=== PATIENT | female | born 1965 | race Caucasian/White ===

== ENCOUNTER 2017-12-26 07:28 | Observation (INO) ==
[2017-12-26] MEDS ORDERED: Nitroglycerin 0.4 MG TAB.SUBL SL ONE (07:45)
--- NOTE | 2017-12-26 07:49 | Emergency Department Note ---
Disposition Clinical Impression: Chest pain Qualifiers: Chest pain type: unspecified Qualified Code(s): R07.9 - Chest pain, unspecified Disposition: Admitted As Inpatient Condition: Fair Forms: ED Satisfaction Letter Time of Disposition: 08:33 Chest Pain HPI - General Chief Complaint: ED Chest Pain Stated Complaint: CHEST PAIN Time Seen by Provider: 12/26/17 07:31 Source: patient, family Mode of arrival: ambulatory Limitations: no limitations Vital Signs Reviewed: Yes Nursing Notes Reviewed: Yes - History of Present Illness HPI Narrative: Awoke 4 hours ago with left-sided chest pain radiating to her left neck and shoulder. Associated dizziness. States she had similar symptoms previously thought secondary to her gallbladder but she is status post cholecystectomy. She has a positive family history of coronary artery disease. Had a stress test 2 years ago. no cardiac catheterization since she was a child to evaluate for a septal defect Pt complaint: chest pain Onset (ago): hour(s) Duration: constant Onset: awoke with symptoms Pain Location: left chest Severity: moderate Severity scale (1-10): 5 Pain Radiation: LUE Improves with: nothing Worsens with: nothing Associated symptoms: Reports: other (dizziness) Treatments prior to arrival chest pain: aspirin - Related Data On Oral Contraceptives: No Home Medications Medication Instructions Recorded Confirmed Levothyroxine [Synthroid] 100 mcg PO SUMOTUTHFR 11/27/15 10/22/16 Lisinopril-HCTZ 10-12.5 [Prinzide 1 tab PO QAM 11/27/15 10/22/16 10-12.5] [place]-3 Fatty Acids [Maxepa] 1,000 mg PO QPM 11/27/15 10/22/16 Rosuvastatin [Crestor] 40 mg PO QPM 11/27/15 10/22/16 Levothyroxine [Synthroid] 112 mcg PO WESA 06/10/16 10/22/16 Previous Rx's Medication Instructions Recorded OxyCODONE/APAP 10/325 [Percocet 1 each PO Q6HR PRN #39 tablet 08/02/16 10/325 MG] Amoxicillin 875 mg PO BID #20 tablet 10/22/16 Allergies Allergy/AdvReac Type Severity Reaction Status Date / Time latex Allergy Rash Verified 10/22/16 06:03 morphine AdvReac Nausea Verified 10/22/16 06:03 All systems ED: reviewed and negative except as stated. Constitutional: Reports: as per HPI Eyes: Reports: as per HPI ENT ED: Reports: epistaxis Cardiovascular: Reports: chest pain Respiratory: Reports: as per HPI Gastrointestinal: Reports: as per HPI Genitourinary: Reports: as per HPI Musculoskeletal: Reports: neck pain, other (Left shoulder pain) Integumentary: Reports: as per HPI Neurological: Reports: other (Dizziness) Psychiatric: Reports: as per HPI Endocrine: Reports: as per HPI Hematological/Lymphatic: Reports: as per HPI Allergic/Immunologic: Reports: as per HPI Chest Pain PMH - Past Medical History Medical history: Reports: hyperlipidemia, hypertension, kidney stones, migraine , thyroid disease, other Surgical history: Reports: appendectomy, cholecystectomy, hysterectomy, other Psychiatric history: Reports: anxiety - Social History Smoking Status: Never smoker Alcohol use: Reports: occasionally Drug use: Reports: none Physical Exam - General Limitations: no limitations General appearance: alert - Head Head exam: atraumatic - Eye Eye exam: Present: normal appearance - ENT ENT exam: normal exam - Neck Neck exam: Present: normal inspection, full ROM - Chest Chest inspection: Present: normal inspection, symmetric chest wall rise. Absent : tenderness - Respiratory Respiratory exam: Present: normal lung sounds bilaterally - Cardiovascular Cardiovascular exam: Present: regular rate, normal rhythm, normal heart sounds - Rectal Exam Rectal exam: Present: deferred - Extremities Exam Extremities exam: Present: normal inspection - Neurological Exam Neurological exam: Present: alert, oriented X3, CN II-XII intact - Psychiatric Psychiatric exam: Present: normal affect, normal mood - Skin Skin exam: Present: warm, dry, intact Course Course Narrative: Patient presents with chest discomfort associated with left shoulder and neck pain. She has a history of hypertension and high cholesterol as well as a positive family history of coronary artery disease. ECG does not show any dynamic changes. Workup initiated - Reevaluation(s) Reevaluation #1: Test results discussed with patient. I will request admission to the medicine service Vital Signs Temperature 97.8 F 12/26/17 07:32 Pulse Rate 77 12/26/17 07:32 Respiratory Rate 16 12/26/17 07:32 Blood Pressure 133/85 12/26/17 07:32 O2 Sat by Pulse Oximetry 100 12/26/17 07:32 Temperature 97.8 F 12/26/17 07:32 Pulse Rate 77 12/26/17 07:32 Respiratory Rate 16 12/26/17 07:32 Blood Pressure 133/85 12/26/17 07:32 O2 Sat by Pulse Oximetry 100 12/26/17 07:32 Oxygen Delivery Oxygen Delivery Room Air Chest Pain - Lab Data Lab results reviewed: Yes I reviewed the patient's lab results. Result diagrams: 12/26/17 07:55 12/26/17 07:55 Lab Results 12/26/17 12/26/17 12/26/17 Range/Units 07:55 07:55 07:55 WBC 5.4 (4.3-11.1) K/mcL RBC 5.11 H (3.82-4.97) M/mcL Hgb 14.7 (11.5-15.4) g/dL Hct 44.5 (35.3-44.9) % MCV 87.1 (83.0-100.0) fL MCH 28.8 (28.0-33.3) pg MCHC 33.0 (31.6-35.5) g/dL RDW 12.6 (11.5-14.5) % Plt Count 225 (140-400) K/mcL MPV 9.8 (9.4-12.4) fL Immature Gran % 0.2 (0-4) % Seg Neutrophils % 45.6 % Lymphocytes % 42.2 % Monocytes % 8.0 % Eosinophils % 3.4 % Basophils % 0.6 % Neutrophils # 2.5 (1.6-8.9) K/mcL Lymphocytes # 2.3 (0.6-4.6) K/mcL Monocytes # 0.4 (0.0-1.3) K/mcL Eosinophils # 0.2 (0.0-0.6) K/mcL Basophils # 0.0 (0.0-0.2) K/mcL PT 11.7 (9.4-12.1) Seconds INR 1.1 APTT 31.8 (26.0-36.0) Seconds Sodium 139 (136-145) mEq/L Potassium 3.5 (3.5-5.1) mEq/L Chloride 104 (98-107) mEq/L Carbon Dioxide 28 (23-29) mEq/L BUN 11 (6-20) mg/dL Creatinine 0.92 (0.60-1.20) mg/dL Est GFR ( Amer) > 60 (> 60) Est GFR (Non-Af Amer) > 60 (> 60) BUN/Creatinine Ratio 12 (6-26) Glucose 106 H (70-105) mg/dL Calculated Osmolality 288 (280-300) Calcium 9.8 (8.6-10.3) mg/dL Troponin I (< 0.04) ng/mL 12/26/17 Range/Units 07:55 WBC (4.3-11.1) K/mcL RBC (3.82-4.97) M/mcL Hgb (11.5-15.4) g/dL Hct (35.3-44.9) % MCV (83.0-100.0) fL MCH (28.0-33.3) pg MCHC (31.6-35.5) g/dL RDW (11.5-14.5) % Plt Count (140-400) K/mcL MPV (9.4-12.4) fL Immature Gran % (0-4) % Seg Neutrophils % % Lymphocytes % % Monocytes % % Eosinophils % % Basophils % % Neutrophils # (1.6-8.9) K/mcL Lymphocytes # (0.6-4.6) K/mcL Monocytes # (0.0-1.3) K/mcL Eosinophils # (0.0-0.6) K/mcL Basophils # (0.0-0.2) K/mcL PT (9.4-12.1) Seconds INR APTT (26.0-36.0) Seconds Sodium (136-145) mEq/L Potassium (3.5-5.1) mEq/L Chloride (98-107) mEq/L Carbon Dioxide (23-29) mEq/L BUN (6-20) mg/dL Creatinine (0.60-1.20) mg/dL Est GFR ( Amer) (> 60) Est GFR (Non-Af Amer) (> 60) BUN/Creatinine Ratio (6-26) Glucose (70-105) mg/dL Calculated Osmolality (280-300) Calcium (8.6-10.3) mg/dL Troponin I < 0.03 (< 0.04) ng/mL - Radiology Data Radiology results reviewed: Yes I reviewed the patient's radiology results. - EKG Data EKG attestation: Yes I reviewed and interpreted this EKG. EKG results narrative: Normal sinus rhythm rate 75 P-R 166 QRS 85 QT/QTC 382/411 study compared to previous dated 11/27/15 Heart Score - Score History: Moderately Suspicious EKG: Normal Age: 45-65 Risk Factors: 1-2 risk factors Troponin: Less than normal limit HEART Score Total: 3
[2017-12-26] MEDS ORDERED: Ondansetron 4 MG/2 ML VIAL IVP ONE (07:56)
[2017-12-26 08:08] LABS: Basophils % 0.6 %; Eosinophils # 0.2 K/mcL (0.0-0.6); Eosinophils % 3.4 %; Hematocrit 44.5 % (35.3-44.9); Hemoglobin 14.7 g/dL (11.5-15.4); Immature Granulocytes % 0.2 % (0-4); Lymphocytes # 2.3 K/mcL (0.6-4.6); Lymphocytes % 42.2 %; Mean Corpuscular Hemoglobin 28.8 pg (28.0-33.3); Mean Corpuscular Volume 87.1 fL (83.0-100.0); Mean Platelet Volume 9.8 fL (9.4-12.4); Monocytes # 0.4 K/mcL (0.0-1.3); Neutrophils # 2.5 K/mcL (1.6-8.9); Platelet Count 225 K/mcL (140-400); Red Blood Count 5.11 M/mcL (3.82-4.97); Red Cell Distribution Width 12.6 % (11.5-14.5); Segmented Neutrophils % 45.6 %
[2017-12-26 08:23] LABS: INR 1.1; Prothrombin Time 11.7 Seconds (9.4-12.1)
[2017-12-26 08:24] LABS: BUN/Creatinine Ratio 12 (6-26); Blood Urea Nitrogen 11 mg/dL (6-20); Calcium 9.8 mg/dL (8.6-10.3); Carbon Dioxide 28 mEq/L (23-29); Chloride 104 mEq/L (98-107); Glucose 106 mg/dL (70-105); Osmolality,Calculated 288 (280-300); Potassium 3.5 mEq/L (3.5-5.1); Sodium 139 mEq/L (136-145); eGFR For Non-African Americans > 60 (> 60)
[2017-12-26 08:26] LABS: Activated Partial Thrombo Time 31.8 Seconds (26.0-36.0)
[2017-12-26] MEDS ORDERED: Naloxone 0.4 MG/ML INJ IVP PRN (12:48)
[2017-12-26] MEDS ORDERED: Acetaminophen 325 MG TABLET PO PRN (12:48)
[2017-12-26] MEDS ORDERED: Nitroglycerin 0.4 MG TAB.SUBL SL PRN (12:52)
--- NOTE | 2017-12-26 15:12 | Internal Med History&Physical ---
<Khurram Felix - Last Filed: 12/26/17 15:25> Date of Encounter: 12/26/17 Time of Encounter: 12:30 Assessment and Plan (1) Chest pain Current visit: Yes Status: Acute Acute chest pain that began this morning at 0400 as left-sided chest pain with radiation to left arm and left neck. Patient describes pain as sharp and stabbing followed by a pressure/aching. Similar symptoms 2 years ago with gallbladder attack. Denies personal history of catheterization/stent placement. Reports lengthy familial history of cardiac disease including 7 way bypass in father, CVAs, MIs, HTN, HLD, and IHSS. Initial troponin less than 0.03. Trend 2. Echocardiogram ordered. Nothing by mouth at midnight for a.m. nuclear stress test. Aspirin. Nitroglycerin when necessary. Continue patient's statin. Cardiology consult ordered and discussed with Dr. Wells due to lengthy familial cardiac history and current chest pain and I appreciate the consult. Patient discussed w/Dr. Javier agrees with plan of care. Patient is high risk for cardiac event/further morbidity due to current symptoms, lengthy familial cardiac disease history, and factors. Observation. Qualifiers: Chest pain type: other chest pain Qualified Code(s): R07.89 - Other chest pain; R07.8 - Other chest pain (2) HLD (hyperlipidemia) Current visit: Yes Status: Chronic Hx of chronic HLD. Lipid panel in a.m. labs. Continue pts. Crestor. Qualifiers: Hyperlipidemia type: pure hypercholesterolemia Qualified Code(s): E78.00 - Pure hypercholesterolemia, unspecified; E78.0 - Pure hypercholesterolemia (3) HTN (hypertension) Current visit: Yes Status: Chronic Hx of chronic HTN. Monitor pt. and VS. Continue pts. Lisinopril-HCTZ. Qualifiers: Hypertension type: essential hypertension Qualified Code(s): I10 - Essential (primary) hypertension (4) Thyroid disease Current visit: Yes Status: Chronic Hx of chronic thyroid disease. Patient states her thyroid disease is not well- managed currently. TSH, free T3, and free T4 ordered a.m. labs. Continue patient's Synthroid. (5) DVT prophylaxis Current visit: Yes Status: Acute Heparin 5,000 units SQ Q8 for DVT prophylaxis. Monitor patient for signs of bleeding. Internal Medicine - H&P: HPI Chief complaint: Chest pain Admitted From: Emergency Dept Plans for Post Hospital Care: Home History of present illness: Ms. Morris is a 52 year old female with PMH of HLD, HTN, kidney stones, migraine, thyroid disease presents from the ED with chief complaint chest pain that began at 0400 this morning and she describes as left-sided chest pain with radiation to her left neck and left arm. She describes pain as sharp and stabbing followed by pressure/ache. Reports similar symptoms 2 years ago this issue with the gallbladder. No alleviating or aggravating factors. Reports likely a familial history of cardiac disease with bypass surgeries, strokes, MIs, HTN, HLD, DM, and IHSS. Denies personal hx of cardiac catheterizations/stents. Reports some SOB w/sx but denies recent illness, fever, chills, nausea, vomiting , changes in vision, headache, palpitations, numbness, tingling, abdominal pain , constipation, diarrhea, dizziness, lightheadedness, pre-syncope, or syncope. Past Med Surg Social Fam HX - Past Medical History Source: patient, old records reviewed, obtained from family Medical history: hyperlipidemia, hypertension, kidney stones, migraine, thyroid disease, other Psychiatric history: anxiety - Past Surgical History Surgical History: appendectomy, , cholecystectomy, hysterectomy, other - Social History Smoking Status: Never smoker Smokeless Tobacco Status: No Alcohol use: occasionally Drug use: none Current living situation: Home, With Family Activity Level: Independent ambulation Recent Out of Country Travel Within the Last 8 Weeks: No Exposure or Possible Exposure to Illness During Travel: No - Family History Mother Race: Family Member Ethnicity: Non- Living Status: Age at : 82 Cause of : Old age Hx Family Cardiac Disorders: Yes (HTN, HLD, Double bypass) Father Race: Family Member Ethnicity: Non- Living Status: Age at : 83 Cause of : Stroke Hx Family Cardiac Disorders: Yes (7-way bypass, CVA, HTN, HLD) Brother Race: Family Member Ethnicity: Non- Living Status: Age at : 69 Cause of : IHSS Hx Family Cardiac Disorders: Yes (Bypass surgery) Hx Family Endocrine Disorder: Yes (DM) Sister Race: Family Member Ethnicity: Non- Living Status: Age at : 60 Cause of : [place] Hx Family Cardiac Disorders: Yes ([place], Triple bypass) Hx Family Endocrine Disorder: Yes (DM) Grandfather Race: Family Member Ethnicity: Non- Living Status: Age at : 52 Cause of : IHSS Hx Family Cardiac Disorders: Yes (IHSS) Internal Medicine - H&P: Meds Levothyroxine [Synthroid] 100 mcg PO [id number] 11/27/15 [History] Lisinopril-HCTZ 10-12.5 [Prinzide 10-12.5] 1 tab PO QAM 11/27/15 [History] [place]-3 Fatty Acids [Maxepa] 1,000 mg PO QPM 11/27/15 [History] Rosuvastatin [Crestor] 40 mg PO QPM 11/27/15 [History] Levothyroxine Sodium [Levoxyl] 50 mcg PO MOON 12/26/17 [History] 3 Allergy/AdvReac Type Severity Reaction Status Date / Time latex Allergy Rash Verified 10/22/16 06:03 morphine AdvReac Nausea Verified 10/22/16 06:03 All Systems PM: A 10-system review of systems was performed and is negative for pertinent findings except as documented above in the HPI. - Constitutional Constitutional: no chills, no fever(s), no night sweats - EENT Eyes: no change in vision, no discharge, no pain, no photophobia Ears: no ear discharge, no ear pain, no tinnitus Nose, mouth and throat: no dysphagia, no nasal discharge, no neck pain, no sore throat - Breasts Breasts: as per HPI - Cardiovascular Cardiovascular ROS IM: as per HPI, chest pain, dyspnea, no diaphoresis, no lightheadedness, no palpitations, no syncope - Respiratory Respiratory: as per HPI, dyspnea, no cough, no wheezing, no excessive phlegm production - Gastrointestinal Gastrointestinal: no abdominal pain, no diarrhea, no hematemesis, no hematochezia, no melena, no nausea, no vomiting - Genitourinary Genitourinary: no change in urinary stream, no dysuria, no flank pain, no hematuria Menstruation: as per HPI, post hysterectomy - Musculoskeletal Musculoskeletal ROS IM: no numbness, no tingling - Integumentary Integumentary IM: no rash, no unusual bruising - Neurological Neurological ROS: no confusion, no convulsions, no focal weakness, no numbness, no tingling, no tremor(s) - Psychiatric Psychiatric: as per HPI, anxiety - Endocrine Endocrine IM: as per HPI - Hematologic/Lymphatic Hematologic/Lymphatic: no easy bruising - Allergic/Immunologic Allergic/Immunologic: as per HPI - Constitutional Vitals: Temp Pulse Resp BP Pulse Ox 98.1 F 76 17 101/68 94 12/26/17 10:45 12/26/17 10:45 12/26/17 10:45 12/26/17 10:45 12/26/17 10:54 General appearance: Present: cooperative, A&O X 3, pleasant, no acute distress, answers questions appropriately - Head Head exam: Present: atraumatic, normocephalic - Eye Eye exam: Present: PERRL, conjuntiva pink, sclera anicteric Pupils: Present: PERRL - ENT ENT exam: Present: normal exam - Neck Neck exam general surgery: Present: normal inspection, supple, trachea midline. Absent: lymphadenopathy - Respiratory Respiratory exam: Present: CTAB. Absent: accessory muscle use, rales, rhonchi, wheezes - Cardiovascular Cardiovascular exam: Present: RRR, +S1, +S2. Absent: diastolic murmur, gallop, rubs, systolic murmur - GI/Abdominal GI/Abdominal exam: Present: normal bowel sounds, soft, no peritoneal signs. Absent: distended, tenderness - Rectal Rectal exam: Present: deferred - Additional comments: exam deferred. - Extremities Exam Extremities exam: Present: warm, radial pulses palpable and symmetrical. Absent : calf tenderness, cyanotic, pedal edema - Back Exam Back exam: Present: normal inspection - Neurological Exam Neurological exam: Present: CN II-XII intact, oriented X3, no focal deficits. Absent: pronater drift, facial droop, speech deficit - Psychiatric Psychiatric exam: Present: normal affect, normal mood - Skin Skin exam: Present: dry, intact Internal Med - H&P Results - Labs CBC & Chem 7: 12/26/17 07:55 12/26/17 07:55 Labs: Cardiac Enzymes 12/26/17 Range/Units 13:47 Troponin I < 0.03 (< 0.04) ng/mL - EKG Data EKG shows normal: sinus rhythm - EKG Data Prior EKG available for review: yes EKG comments: 12/26/17 15:17 EKG dated 11/27/15 shows sinus rhythm. EKG dated 12/26/17 shows sinus rhythm with possible right ventricular conduction delay - Diagnostic Studies Chest x-ray Additional comments: Impressions Chest X-Ray 12/26/17 07:45 IMPRESSION: No acute process. D/ / Shimon Mo MD / Shimon Mo MD Interpreting Provider: Shimon Mo MD <YayaIan T - Last Filed: 12/27/17 07:31> Date of Encounter: 12/27/17 Internal Medicine - H&P: HPI History of present illness: Ms. Morris is a 52 year old female All Systems PM: A 10-system review of systems was performed and is negative for pertinent findings except as documented above in the HPI. - Constitutional Vitals: Temp Pulse Resp BP Pulse Ox 97.8 F 84 16 104/68 98 12/27/17 06:29 12/27/17 06:29 12/27/17 06:29 12/27/17 06:29 12/27/17 06:29 Internal Med - H&P Results - Labs CBC & Chem 7: 12/27/17 01:20 12/27/17 01:20 Labs: Short CBC 12/27/17 Range/Units 01:20 WBC 4.5 (4.3-11.1) K/mcL Hgb 13.2 D (11.5-15.4) g/dL Hct 39.3 (35.3-44.9) % Plt Count 196 (140-400) K/mcL Neutrophils # 1.9 (1.6-8.9) K/mcL BMP 12/27/17 01:20 Sodium 141 Potassium 3.5 Chloride 108 H Carbon Dioxide 28 BUN 11 Creatinine 0.85 Glucose 126 H Calcium 9.5 Cardiac Enzymes 12/26/17 12/26/17 Range/Units 13:47 19:48 Troponin I < 0.03 < 0.03 (< 0.04) ng/mL Liver Function 12/27/17 Range/Units 01:20 Total Bilirubin 0.4 (0.3-1.0) mg/dL AST 21 (13-39) Units/L ALT 28 (7-52) Units/L Alkaline Phosphatase 43 (34-104) Units/L Albumin 3.9 (3.5-5.7) g/dL - Impressions ITS Impressions Echocardiogram 12/26/17 12:54 Impressions: LVEF 70%. Normal LV chamber size, wall thickness and function. Moderate left ventricular diastolic dysfunction. Normal right ventricular structure and function. No evidence of pulmonary hypertension. No significant valvular dysfunction. Left Ventricular Wall Motion: Rest Echo Findings All wall segments showed normal motion. Findings: Study Quality * Technically adequate exam. ECG Findings * Normal sinus rhythm. Left Ventricle * LVEF 70%. * Normal LV chamber size, wall thickness and function. * Moderate left ventricular diastolic dysfunction. Right Ventricle * Normal right ventricular structure and function. Left Atrium * Normal left atrial size. Right Atrium * Normal right atrial size. Interatrial Septum * Interatrial septum not well evaluated. Aortic Valve * Aortic valve not well visualized. * No aortic regurgitation. * No aortic stenosis. Mitral Valve * Normal mitral valve structure and function. * No mitral regurgitation. * No mitral stenosis. Tricuspid Valve * Normal tricuspid valve structure and function. * Trace tricuspid regurgitation. * No evidence of pulmonary hypertension. Pulmonic Valve * Pulmonic valve is not well visualized. * No pulmonic regurgitation. Aorta * Normally sized aortic root. Pericardium * The pericardium appears normal. IVC * Normal IVC dimensions and inspiratory collapse. Pulmonary Artery * Normal visualized portions of the main pulmonary artery. - Attending Attestation agree with plan
[2017-12-26] MEDS ORDERED: Patient Taking Own Medication 1 EACH PO SCH ×2 (18:00)
--- NOTE | 2017-12-26 20:23 | Electrocardiograph Report ---
[place] [facility] Test Date: 2017-12-26 Pat Name: Carlyn Morris Department: 104 Room: [facility] Gender: F Hotel Room Attendant: : 1965 Requested By: Kareem Hernandez Order Number: [id number] Reading MD: Audi Tamez DO Measurements Intervals [place] Rate: 75 P: 29 CO: 166 QRS: 37 QRSD: 85 T: 37 QT: 382 QTc: 411 Interpretive Statements SINUS RHYTHM POSSIBLE RIGHT VENTRICULAR CONDUCTION DELAY Electronically Signed On 12-26-2017 20:22:36 EST by Audi Tamez DO
[2017-12-26] MEDS: *HR* Heparin 5,000 UNIT/ML VIAL SQ SCH (21:38)
[2017-12-27 01:45] LABS: Basophils % 0.7 %; Eosinophils # 0.2 K/mcL (0.0-0.6); Eosinophils % 3.5 %; Hematocrit 39.3 % (35.3-44.9); Hemoglobin 13.2 g/dL (11.5-15.4); Immature Granulocytes % 0.2 % (0-4); Lymphocytes # 2.1 K/mcL (0.6-4.6); Lymphocytes % 45.4 %; Mean Corpuscular HGB Conc 33.6 g/dL (31.6-35.5); Mean Corpuscular Hemoglobin 28.9 pg (28.0-33.3); Monocytes # 0.4 K/mcL (0.0-1.3); Monocytes % 8.6 %; Neutrophils # 1.9 K/mcL (1.6-8.9); Platelet Count 196 K/mcL (140-400); Red Blood Count 4.57 M/mcL (3.82-4.97); Red Cell Distribution Width 12.7 % (11.5-14.5); Segmented Neutrophils % 41.6 %
[2017-12-27 02:14] LABS: Alanine Aminotransferase 28 Units/L (7-52); Albumin 3.9 g/dL (3.5-5.7); Albumin/Globulin Ratio 2.3 (1.1-2.2); Alkaline Phosphatase 43 Units/L (34-104); Aspartate Amino Transferase 21 Units/L (13-39); BUN/Creatinine Ratio 13 (6-26); Bilirubin,Total 0.4 mg/dL (0.3-1.0); Blood Urea Nitrogen 11 mg/dL (6-20); Calcium 9.5 mg/dL (8.6-10.3); Carbon Dioxide 28 mEq/L (23-29); Chloride 108 mEq/L (98-107); Chol/HDL Ratio 2.9 (0-4.9); Cholesterol 121 mg/dL (< 200); Globulin 1.7 g/dL (2.4-3.5); Glucose 126 mg/dL (70-105); HDL Cholesterol 42 mg/dL (40-59); LDL Cholesterol,Calculated 56 mg/dL (0-99); Magnesium 2.1 mg/dL (1.6-2.6); Osmolality,Calculated 293 (280-300); Potassium 3.5 mEq/L (3.5-5.1); Sodium 141 mEq/L (136-145); Total Protein 5.6 g/dL (6.4-8.9); Triglycerides 117 mg/dL (< 150); eGFR For Non-African Americans > 60 (> 60)
[2017-12-27 02:18] LABS: Thyroid Stimulating Hormone 0.257 mcIU/mL (0.340-5.600)
[2017-12-27] MEDS: *HR* Heparin 5,000 UNIT/ML VIAL SQ SCH (05:46)
[2017-12-27] MEDS ORDERED: Regadenoson 0.4 MG/5 ML SYRINGE IVP ONE (06:13)
[2017-12-27] MEDS ORDERED: Aspirin Enteric Coated 81 MG Tablet PO SCH (09:00)
[2017-12-27 09:14] VITALS: BP 115/78
--- NOTE | 2017-12-27 11:03 | Discharge Summary ---
- NOTES TO OUTPATIENT PROVIDER Notes to Outpatient Provider: TSH 0.2, free T4/T3 normal. Recommend repeat TSH in 4-6 weeks Orders not resulted at time of discharge: Pending orders 12/26/17 12:55 NM jack perf SPECT multi [NM] Routine 12/27/17 01:20 A1C [Hgb A1C] AM 04012/28/17 04:00 Complete Blood Count [HEME] AM 0400 Comprehensive Metabolic Panel AM 04012/29/17 04:00 Complete Blood Count [HEME] AM 040 Comprehensive Metabolic Panel AM 04012/30/17 04:00 Complete Blood Count [HEME] AM 040 Comprehensive Metabolic Panel AM 040 Date of Encounter: 12/27/17 Time of Encounter: 11:01 - Discharge Diagnosis (1) Chest pain Priority: Primary Status: Resolved Comments: presented with chest pain that woke her from sleep; resolved with SL Nitrol. No known CAD. Serial troponin negative, EKG without acute ST changes. TTE with EF 70% and moderate diastolic dysfunction. Nuclear stress test negative for ischemia or infarct. She does have significant family history it would benefit from outpatient cardiology follow-up. Patient advised to return to ER if chest pain/SOB recurs. Otherwise follow-up with Cardiology outpatient. Qualifiers: Chest pain type: other chest pain Qualified Code(s): R07.89 - Other chest pain; R07.8 - Other chest pain (2) HTN (hypertension) Priority: Secondary Status: Chronic Comments: per hx. BP controlled. Continue home BP medication. Qualifiers: Hypertension type: essential hypertension Qualified Code(s): I10 - Essential (primary) hypertension (3) Thyroid disease Priority: Secondary Status: Chronic Comments: per hx. TSH 0.257. Free T4, T3 normal. Suspect subclinical hyperthyroidism. Continue home levothyroxine. Recommend repeat TSH in 4-6 weeks with PCP. Hospital course: Ms. Morris is a 52 year old female with PMH hypertension and hypothyroidism who presented to [facility] on 12/26/2017 with complaints of chest pain. ACS ruled out with negative stress tests, normal echo, no acute ST changes on EKG and serial troponins negative. Chest pain resolved at time of discharge. Advised to follow-up with cardiology/PCP outpatient. Patient also advised to return to ER if SOB/'s chest pain recurs Discharge discussed with: patient, family - Time Spent with Patient Total time spent providing and/or coordinating discharge services: Less than 30 minutes - Discharge Medications Home Medications: Levothyroxine [Synthroid] 100 mcg PO [id number] 11/27/15 [History] Lisinopril-HCTZ 10-12.5 [Prinzide 10-12.5] 1 tab PO QAM 11/27/15 [History] [place]-3 Fatty Acids [Maxepa] 1,000 mg PO QPM 11/27/15 [History] Rosuvastatin [Crestor] 40 mg PO QPM 11/27/15 [History] Levothyroxine Sodium [Levoxyl] 50 mcg PO MOON 12/26/17 [History] Allergies/Adverse Reactions: 3 Allergy/AdvReac Type Severity Reaction Status Date / Time latex Allergy Rash Verified 10/22/16 06:03 morphine AdvReac Nausea Verified 10/22/16 06:03 Date of admission: 12/26/17 09:41 Primary care physician: Tha Anne DO Consults: 12/26/17 12:50 Consult to Employee Benefits Attorney [CONS] Routine Reason for SW Consult: Please assess patient for possible home needs for post -discharge planning. 12/26/17 12:55 Consult to Cardiology [CONS] Routine Comment: Consulting Provider: Cardiology Felisha Reason for Consult: Patient had chest pain at 0400 this morning as sharp pain /pressure in left chest, left neck, left arm. Hx of HTN/HLD. Extensive familial hx of IHSS, PR, CVA, HLD, HTN, and bypass surgeries (father required 7-way bypass). Had stress test 2 years ago. No cath hx. Initial trop negative. Echocardiogram and nuclear stress ordered. Aspirin. Nitro prn. No chest pain during examination. Call Completed: Yes Discharging clinician: Delores Danielle Anticipated date of discharge: 12/27/17 - Constitutional Vitals: Temp Pulse Resp BP Pulse Ox 97.6 F 74 16 115/78 96 12/27/17 09:13 12/27/17 09:13 12/27/17 09:13 12/27/17 09:13 12/27/17 09:13 General appearance: Present: cooperative, A&O X 3, pleasant, no acute distress, answers questions appropriately - Head Head exam: Present: atraumatic, normocephalic - Eye Eye exam: Present: PERRL, conjuntiva pink, sclera anicteric Pupils: Present: PERRL - Neck Neck exam general surgery: Present: supple, trachea midline. Absent: lymphadenopathy - Respiratory Respiratory exam: Present: CTAB. Absent: accessory muscle use, rales, rhonchi, wheezes - Cardiovascular Cardiovascular exam: Present: RRR, +S1, +S2. Absent: diastolic murmur, gallop, rubs, systolic murmur - GI/Abdominal GI/Abdominal exam: Present: normal bowel sounds, soft, no peritoneal signs. Absent: distended, tenderness - Extremities Exam Extremities exam: Present: warm, radial pulses palpable and symmetrical. Absent : calf tenderness, cyanotic, pedal edema - Neurological Exam Neurological exam: Present: CN II-XII intact, oriented X3, no focal deficits. Absent: pronater drift, facial droop, speech deficit - Skin Skin exam: Present: dry, intact - Patient Status Disposition: Home, Self-Care Condition: Good Functional capacity at discharge: independent ambulation Overall status at discharge: patient is back to baseline - Discharge Instructions Instructions: Chest Pain (DC), Levothyroxine (By mouth) Follow Up With: Tha Anne DO [Primary Care Provider] - (Please call for follow-up appointment in 1-2 weeks) Con Otero DO [Partnered Physician] - (Appointment has been requested for you. Please call the office if you have not heard from them within 4 weeks to schedule an appointment) - Diet and Activity Activity: increase activity as tolerated Diet: advance to your usual diet
[2017-12-27 11:08] LABS: Hemoglobin A1C 5.8 %
== END 2017-12-27 11:57 | disposition home or self-care (01) ==
LOC: EMEROO 07:28 → 3NENU 07:28
PROVIDERS: ADMIT Internal Medicine; ATTEND Family Medicine